=== PATIENT | male | born 1990 | race African-American/Black ===

== ENCOUNTER 2020-08-24 15:27 | Emergency (ER) | payer OTHER ==
[2015-02-26 22:14] VITALS: BP 125/69
[~2020-08-24] VITALS: Ht 170.2 cm; Wt 79.5 kg
--- NOTE | 2020-08-24 17:26 | ED.ADGEN ---
Past Medical History Past Medical History: No Pertinent History Past Surgical History: No Surgical History Smoking Status: Current Every Day Smoker Alcohol Use: None Drug Use: Marijuana General Adult EDM: Chief Complaint: DENTAL PROBLEM HPI: HPI: Patient is a 29 year old AA male who presents to the emergency department with complaints of right-sided dental pain for the last 2 days. Patient states that the upper part of his jaw hurts worse in the lower part of his jaw. He reports that there is a broken molar in the right upper quadrant. He denies any fever, cough, shortness of breath, sore throat, difficulty swallowing, nausea, vomiting, diarrhea, abdominal pain, chest pain, body aches, or fatigue. Patient currently rates the pain 8 out of 10 on the pain scale, he denies any alleviating factors, the pain is is worse with palpation of the affected area. Review of Systems: Review of Systems: Complete ROS is negative unless otherwise noted in HPI. Allergies: Allergies: Allergies Coded Allergies Type Severity Reaction Last Updated Verified [place] Allergy Intermediate SWELLING 08/19/14 No Physical Exam: PE: See Above Constitutional: Well developed, well nourished, no acute distress, non-toxic appearance. [] HENT: Normocephalic, atraumatic, bilateral external ears normal, oropharynx moist, no oral exudates, nose normal; tooth #3 is noted to be broken, tenderness to palpation of the buccal surface lateral to teeth 1 and 2, no visible or palpable dental abscess, no facial edema. [] Eyes: PERRLA, EOMI, conjunctiva normal, no discharge. [] Neck: Normal range of motion, no tenderness, supple, no stridor. [] Cardiovascular:Heart rate regular rhythm, no murmur [] Lungs & Thorax: Bilateral breath sounds clear to auscultation [] Abdomen: Bowel sounds normal, soft, no tenderness, no masses, no pulsatile masses. [] Skin: Warm, dry, no erythema, no rash. [] Back: No tenderness, no CVA tenderness. [] Extremities: No tenderness, no cyanosis, no clubbing, ROM intact, no edema. [] Neurologic: Alert and oriented X 3, normal motor function, normal sensory function, no focal deficits noted. [] Psychologic: Affect normal, judgement normal, mood normal. [] Current Patient Data: Vital Signs: Vital Signs Date Time Temp Pulse Resp B/P (MAP) Pulse Ox O2 Delivery O2 Flow Rate FiO2 08/24/20 17:22 97.9 76 16 119/58 (78) 95 Room Air 97.9 EKG: EKG: [] Heart Score: C/O Chest Pain: No Risk Scores: Score 0 - 3: 2.5% MACE over next 6 weeks - Discharge Home Score 4 - 6: 20.3% MACE over next 6 weeks - Admit for Clinical Observation Score 7 - 10: 72.7% MACE over next 6 weeks - Early Invasive Strategies Radiology/Procedures: Radiology/Procedures: [] Course & Med Decision Making: Course & Med Decision Making Pertinent Labs and Imaging studies reviewed. (See chart for details) [] Dragon Disclaimer: Dragon Disclaimer: This electronic medical record was generated, in whole or in part, using a voice recognition dictation system. Departure Departure Impression: Primary Impression: Infected dental caries Additional Impression: Dentalgia Disposition: HOME / SELF CARE / HOMELESS Condition: STABLE Referrals: NO PCP (PCP) Patient Instructions: Dental Abscess, Dental Pain, [id number] Additional Instructions: Fill prescription(s) and use as directed. Follow up with dentist using the referral list provided. Return to the ER if symptoms worsen. Scripts Clindamycin Hcl (CLINDAMYCIN HCL) 150 Mg Capsule 450 MG PO TID for 7 Days, #63 CAP 0 Refills Prov: BETH RANDALL APRN 08/24/20 Naproxen (NAPROXEN) 500 Mg Tablet 1 TAB PO BID PRN for PAIN for 10 Days, #20 TAB 0 Refills Prov: BETH RNADALL APRN 08/24/20 Problem Qualifiers BETH RANDALL APRN August 24, 2020 17:26
[2020-08-24] MEDS ORDERED: CLIN150C15 PO (17:38)
[2020-08-24] MEDS ORDERED: NAPR-514 PO (17:38)
== END 2020-08-24 17:48 | disposition home or self-care (01) ==
LOC: ER 15:27
DX: K04.7 Periapical abscess without sinus (principal); F17.200 Nicotine dependence, unspecified, uncomplicated; Z91.018 Allergy to other foods
CPT/HCPCS: 99283

== ENCOUNTER 2020-09-14 04:22 | Emergency (ER) | payer OTHER ==
[~2020-09-14] VITALS: Ht 170.2 cm; Wt 79.0 kg
[~2020-09-14 04:22] MED LIST: CLIN150C15 PO; NAPR-514 PO
[2020-09-14 04:32] VITALS: BP 118/55
[2020-09-14] MEDS ORDERED: CHLO15MO2 PO (04:48)
[2020-09-14] MEDS ORDERED: AMOX1TAB61 PO (04:48)
[2020-09-14] MEDS ORDERED: NAPR-695 PO (04:48)
--- NOTE | 2020-09-14 04:49 | PHYS DOC ---
Past Medical History Past Medical History: No Pertinent History Past Surgical History: No Surgical History Smoking Status: Current Every Day Smoker Alcohol Use: None Drug Use: Marijuana General Adult EDM: Chief Complaint: DENTAL PROBLEM HPI: HPI: Patient is a 29 year old [f__sex] who presents with [] Review of Systems: Review of Systems: Constitutional: Denies fever or chills Eyes: Denies redness or eye pain HENT: Denies nasal congestion or sore throat Respiratory: Denies cough or shortness of breath Cardiovascular: Denies chest pain or palpitations GI: Denies abdominal pain, nausea, or vomiting : Denies dysuria or hematuria Musculoskeletal: Denies back pain or joint pain Integument: Denies rash or skin lesions Neurologic: Denies headache, focal weakness or sensory changes Complete systems were reviewed and found to be within normal limits, except as documented in this note. Heart Score: C/O Chest Pain: N/A Current Medications: Current Medications Medications (Trade) Dose Ordered Sig/Kae Start Time Stop Time Status Last Admin Dose Admin Amoxicillin/ Clavulanate Potassium (Augmentin 875/ 125mg) 1 tab 1X ONCE 09/14/20 04:45 09/14/20 04:46 UNV Dexamethasone (Decadron) 10 mg 1X ONCE 09/14/20 04:45 09/14/20 04:46 UNV Ketorolac Tromethamine (Toradol 30mg Vial) 30 mg 1X ONCE 09/14/20 04:45 09/14/20 04:46 UNV Allergies: Allergies: Allergies Coded Allergies Type Severity Reaction Last Updated Verified [place] Allergy Intermediate SWELLING 08/19/14 No Physical Exam: PE: Constitutional: Well developed, well nourished, no acute distress, non-toxic appearance HENT: Normocephalic, atraumatic Eyes: PERRL, EOMI, conjunctiva normal, no discharge Neck: Normal range of motion, no tenderness, supple Lungs & Thorax: No respiratory distress, equal chest rise and fall Abdomen: Soft, no tenderness Skin: Warm, dry, no erythema, no rash Back: No tenderness, no CVA tenderness Extremities: No tenderness, ROM intact, no edema Neurologic: Alert and oriented X 3, normal motor function, normal sensory function, no focal deficits noted Psychologic: Affect normal, judgment normal Current Patient Data: Vital Signs: Vital Signs Date Time Temp Pulse Resp B/P (MAP) Pulse Ox O2 Delivery O2 Flow Rate FiO2 09/14/20 04:32 98.3 78 16 118/55 (76) 98 Room Air 98.3 EKG: EKG: [] Radiology/Procedures: Radiology/Procedures: [] Course & Med Decision Making: Course & Med Decision Making Patient stable for discharge with outpatient follow-up with PCP/dentist. Dental resources provided. Discussed findings and plan with patient, who acknowledges understanding and agreement. Aileen Disclaimer: Aileen Disclaimer: This electronic medical record was generated, in whole or in part, using a voice recognition dictation system. Departure Departure Impression: Primary Impression: Dentalgia Additional Impression: Dental caries Disposition: HOME / SELF CARE / HOMELESS Condition: STABLE Referrals: NO PCP (PCP) Patient Instructions: Dental Caries, Toothache-Brief Additional Instructions: May continue use of over the counter Tylenol for pain or discomfort in addition to prescribed pain medication. Scripts Naproxen (NAPROXEN) 375 Mg Tablet 375 MG PO TID PRN for PAIN, #20 TAB Prov: DIANA BELTRÁN DO 09/14/20 Chlorhexidine Gluconate (PERIDEX) 15 Ml Mouthwash 15 ML PO BID, #473 ML 0 Refills Prov: DIANA BELTRÁN DO 09/14/20 Amoxicillin/Potassium Clav (AUGMENTIN 875-125 TABLET) 1 Each Tablet 1 TAB PO BID for 7 Days, #14 TAB Prov: DIANA BELTRÁN DO 09/14/20 DIANA BELTRÁN DO Sep 14, 2020 04:49
[2020-09-14] MEDS ORDERED: KETOROLAC 30 MG/ML VIAL. IM ONE (05:00)
[2020-09-14] MEDS ORDERED: DEXAMETHASONE 4 MG TABLET PO ONE (05:00)
[2020-09-14] MEDS ORDERED: AMOXICILLIN/K CLAV 875/125MG TABLET. PO ONE (05:00)
== END 2020-09-14 04:57 | disposition home or self-care (01) ==
LOC: ER 04:22
DX: K02.9 Dental caries, unspecified (principal); F17.200 Nicotine dependence, unspecified, uncomplicated
CPT/HCPCS: 96372; 99283; J1885

== ENCOUNTER 2021-07-17 11:02 | Emergency (ER) | payer OTHER ==
[~2021-07-17] VITALS: Ht 177.8 cm; Wt 90.3 kg
[~2021-07-17 11:02] MED LIST changes: +AMOX1TAB61 PO; +CHLO15MO2 PO; -CLIN150C15 PO; +CLIN150C16 PO; +NAPR-695 PO
[2021-07-17 12:00] VITALS: BP 136/87
--- NOTE | 2021-07-17 12:54 | PHYS DOC ---
Past Medical History Past Medical History: No Pertinent History Past Surgical History: No Surgical History Smoking Status: Current Every Day Smoker Alcohol Use: None Drug Use: None, Marijuana General Adult EDM: Chief Complaint: DENTAL PROBLEM HPI: HPI: Patient is a 30-year-old male presents to the emergency department complaining of upper molar pain on the left and the right for the past 2 days. Patient states he has not seen a dentist or his primary care doctor for this dental discomfort. Patient states he has not taken [id number] pain medication or prescription pain medication. Reports he was seen here approximately a year ago for the same pain and was started on an antibiotic which seemed to help. Patient denies tongue swelling, numbness or tingling to his mouth tongue or face. Patient denies fever or chills. Patient denies problems swallowing. Patient denies difficulty speaking. Patient denies other physical complaints or physical concerns. Review of Systems: Review of Systems: 14 body systems of review of systems have been reviewed. See HPI for pertinent positives and negative responses, otherwise all other systems are negative, nonpertinent or noncontributory. Constitutional: Negative except as outlined in HPI above. Skin: Negative except as outlined in HPI above. Eyes: Negative except as outlined in HPI above. HENT: Negative except as outlined in HPI above. Respiratory: Negative except as outlined in HPI above. Cardiovascular: Negative except as outlined in HPI above. GI: Negative except as outlined in HPI above. : Negative except as outlined in HPI above. Musculoskeletal: Negative except as outlined in HPI above. Integument: Negative except as outlined in HPI above. Neurologic: Negative except as outlined in HPI above. Endocrine: Negative except as outlined in HPI above. Lymphatic: Negative except as outlined in HPI above. Psychiatric: Negative except as outlined in HPI above. Heart Score: C/O Chest Pain: No Risk Factors: Risk Factors: DM, Current or recent (<one month) smoker, HTN, HLP, family history of CAD, obesity. Risk Scores: Score 0 - 3: 2.5% MACE over next 6 weeks - Discharge Home Score 4 - 6: 20.3% MACE over next 6 weeks - Admit for Clinical Observation Score 7 - 10: 72.7% MACE over next 6 weeks - Early Invasive Strategies Current Medications: Current Medications Medications (Trade) Dose Ordered Sig/Kae Start Time Stop Time Status Last Admin Dose Admin Acetaminophen (Tylenol) 1,000 mg 1X ONCE 07/17/21 13:00 07/17/21 13:01 UNV Amoxicillin/ Clavulanate Potassium (Augmentin 875/ 125mg) 1 tab 1X ONCE 07/17/21 13:00 07/17/21 13:01 UNV Ketorolac Tromethamine (Toradol Im) 60 mg 1X ONCE 07/17/21 13:00 07/17/21 13:01 UNV Allergies: Allergies: Allergies Coded Allergies Type Severity Reaction Last Updated Verified [place] Allergy Intermediate SWELLING 08/19/14 No Physical Exam: PE: Constitutional: Well developed, well nourished, no acute distress, non-toxic appearance. 30-year-old male in no apparent distress. HENT: Normocephalic, atraumatic. Oropharynx moist, pink, no deep tissue infectious process appreciated, there is no swelling of the tongue, patient speaking in normal voice tones, no drooling, no trismus, marked dental caries, no gum swelling appreciated, molars #3 and 14 are missing, this is the area of concern from patient, there is purulence at center gum area. Eyes: Conjunctiva normal, no discharge. Neck: Normal range of motion, no stridor. Cardiovascular: No cyanosis appreciated, distal cap refill less than 2 seconds. Lungs & Thorax: Patient is in no respiratory distress, no audible adventitious lung sounds appreciated. Abdomen: Nontender, no abnormalities noted. Skin: Warm, dry, no erythema, no rash. Back: No tenderness, no deformities. Extremities: No tenderness, no cyanosis, no clubbing, ROM intact, no edema. Neurologic: Alert and oriented X 3, normal motor function, normal sensory function, no focal deficits noted. Psychologic: Affect normal, judgement normal, mood normal. Current Patient Data: Vital Signs: Vital Signs Date Time Temp Pulse Resp B/P (MAP) Pulse Ox O2 Delivery O2 Flow Rate FiO2 07/17/21 12:00 98.8 106 18 136/87 (103) 99 Room Air 98.8 EKG: EKG: [] Course & Med Decision Making: Course & Med Decision Making Pertinent Labs and Imaging studies reviewed. (See chart for details) 30-year-old male, vital signs reviewed, presents emergency department concerning dental pain for the past 2 days. Physical examination concerning for dental infection, patient has marked dental caries. Will give IM pain medication in the ED today, start on antibiotic regimen, discharged home with prescription for Augmentin, Peridex swish and spits, ibuprofen pain medication. Discussed with patient strict follow-up with dentist soon, return to ER precautions and concerns were reviewed, patient gave verbal understanding of and is amenable to ED discharge planning. Discussed with the patient all findings and diagnostic testing as well as the need to follow-up with their primary care provider for further evaluation and treatment or return to the ED if any new or worsening symptoms. Strict return precautions were also discussed at length, the patient voiced understanding and agreement with the discharge planning. The patient was nontoxic in appearance, in no apparent distress, and hemodynamically stable at the time of disposition. Aileen Disclaimer: Aileen Disclaimer: This electronic medical record was generated, in whole or in part, using a voice recognition dictation system. Departure Departure Impression: Primary Impression: Infected dental caries Additional Impression: Dentalgia Disposition: HOME / SELF CARE / HOMELESS Condition: GOOD Referrals: NO PCP (PCP) Patient Instructions: Dental Abscess, Dental Caries Additional Instructions: You are seen today in the emergency department for dental pain. You do have an infection in your decayed teeth on both of your upper molars to the left and to the right side. You were started on amoxicillin antibiotic regimen today, you were also given Tylenol for pain and a pain shot. I am prescribing you amoxicillin that you will take twice a day for the next 10 days. I am also prescribing you 600 mg ibuprofen for pain and discomfort, I am also prescribing you a antiseptic mouthwash to swish and spit daily. Please follow-up with a dentist soon. Thank you for visiting our Emergency Department. It was a pleas ure taking care of you today in the emergency department and we appreciate you trusting us with your care. If any additional problems come up don't hesitate to return to visit us. Please follow up with your primary care provider so they can plan additional care if needed and know about the problem that you had. If symptoms worsen come back to the Emergency Department. Any concerning symptoms that start such as chest pain, shortness of air, weakness or numbness on one side of the body, running high fevers or any other concerning symptoms return to the ER. A list of dental clinics has been attached to this document. Scripts Ibuprofen (IBUPROFEN) 600 Mg Tablet 600 MG PO PRN Q6HRS PRN for INFLAMMATION, #30 TAB 0 Refills Prov: DIANA ST APRN 07/17/21 Amoxicillin/Potassium Clav (AMOX TR-K CLV 875-125 MG TAB) 1 Each Tablet 1 TAB PO BID for dental infection, #20 TAB Prov: DIANA ST APRN 07/17/21 Chlorhexidine Gluconate (PERIDEX) 15 Ml Mouthwash 15-30 ML PO TID for 8 Days, #473 ML 0 Refills Prov: DIANA ST APRN 07/17/[address] APRN Jul 17, 2021 12:54
[2021-07-17] MEDS ORDERED: IBUP-1007 PO (13:00)
[2021-07-17] MEDS ORDERED: AMOX1TAB11 PO (13:00)
[2021-07-17] MEDS ORDERED: KETOROLAC 60 MG/2 ML VIAL. IM ONE (13:00)
[2021-07-17] MEDS ORDERED: CHLO15MO2 PO (13:00)
[2021-07-17] MEDS ORDERED: ACETAMINOPHEN 500 MG TABLET PO ONE (13:00)
[2021-07-17] MEDS ORDERED: AMOXICILLIN/K CLAV 875/125MG TABLET. PO ONE (13:00)
== END 2021-07-17 13:20 | disposition home or self-care (01) ==
LOC: ER 11:02
DX: K04.7 Periapical abscess without sinus (principal); F17.200 Nicotine dependence, unspecified, uncomplicated; Z91.018 Allergy to other foods
CPT/HCPCS: 96372; 99283; J1885